=== PATIENT | female | born 1950 | race Caucasian/White ===

== ENCOUNTER 2024-07-06 11:55 | Inpatient (IN) | payer MEDICARE ==
[2024-07-06 12:46] LABS: Basophils # (A) 0.05 10*3/uL (0.00-0.10); Basophils % (A) 0.7 %; Eosinophils # (A) 0.03 10*3/uL (0.04-0.35); Eosinophils % (A) 0.4 %; HCT 45.4 % (37.2-46.3); HGB 14.8 g/dL (12.0-15.0); Lymphocytes # (A) 0.89 10*3/uL (0.90-5.00); Lymphocytes % (A) 11.8 %; MCH 28.2 pg (27.0-32.0); MCHC 32.6 g/dL (32.0-37.0); MCV 86.5 fL (80.0-97.0); Monocytes # (A) 0.54 10*3/uL (0.20-1.00); Monocytes % (A) 7.2 %; Neutrophils % (A) 79.5 %; Platelet Count 350 10*3/uL (140-440); RBC 5.25 10*6/uL (4.10-5.20); RDW 14.1 % (11.5-14.5); WBC 7.54 10*3/uL (4.50-10.00)
[2024-07-06 12:51] LABS: ALT 44 U/L (4-34); African American GFR (CKD) >90 (>60 ml/min/1.73 sqM); Albumin 4.8 g/dL (3.5-5.0); Alcohol <10 mg/dL; Anion Gap 13 mmol/L; Blood Urea Nitrogen 11 mg/dL (7-17); Calcium 10.1 mg/dL (8.4-10.2); Carbon Dioxide 23 mmol/L (22-30); Chloride 105 mmol/L (98-107); Glucose 108 mg/dL (74-99); Non-African American GFR(CKD) 89 (>60 ml/min/1.73 sqM); Sodium 141 mmol/L (137-145); Total Bilirubin 2.8 mg/dL (0.2-1.3); Total Protein 8.1 g/dL (6.3-8.2)
[2024-07-06 12:52] LABS: INR 1.1 (<1.2); Partial Thromboplastin Time 26.9 sec (22.0-30.0)
[2024-07-06 12:54] LABS: AST 105 U/L (14-36); Alkaline Phosphatase 83 U/L (38-126); Potassium 4.3 mmol/L (3.5-5.1)
[2024-07-06] MEDS: SODIUM CHLORIDE 0.9% 500 ML 500 ML IV ONE (13:27)
--- NOTE | 2024-07-06 14:15 | ED ---
Psych HPI - General Chief Complaint: Psychiatric Symptoms Stated Complaint: Petitioned-AMS Time Seen by Provider: 07/06/24 12:01 Source: patient, EMS, RN notes reviewed Mode of arrival: EMS Limitations: altered mental status - History of Present Illness Initial Comments: 74-year-old female presents emergency department with chief complaint of needing psychiatric evaluation. Patient brought here police EMS as patient reported called 911, ran into her apartment and locked herself in there. Patient is having very bizarre erratic behavior patient unable to provide any significant history or complaints as she is very altered. No obvious injury no reports from EMS or police of psychiatric history. - Related Data Home Medications Medication Instructions Recorded Confirmed Unable To Assess [Unable to Assess] 07/06/24 07/06/24 Allergies Allergy/AdvReac Type Severity Reaction Status Date / Time No Known Allergies Allergy Verified 07/06/24 12:07 Review of Systems ROS Statement: Those systems with pertinent positive or pertinent negative responses have been documented in the HPI. ROS Other: All systems not noted in ROS Statement are negative. Past Medical History Past Medical History: Unable to Obtain History of Any Multi-Drug Resistant Organisms: None Reported Past Surgical History: Unable to Obtain Past Psychological History: No Psychological Hx Reported Smoking Status: Never smoker Past Alcohol Use History: None Reported Past Drug Use History: None Reported General Exam Limitations: altered mental status General appearance: alert, in no apparent distress Head exam: Present: atraumatic, normocephalic, normal inspection Eye exam: Present: normal appearance, PERRL, EOMI. Absent: scleral icterus, conjunctival injection, periorbital swelling ENT exam: Present: normal exam, normal oropharynx, mucous membranes moist Neck exam: Present: normal inspection, full ROM. Absent: tenderness, meningismus, lymphadenopathy Respiratory exam: Present: normal lung sounds bilaterally. Absent: respiratory distress, wheezes, rales, rhonchi, stridor Cardiovascular Exam: Present: regular rate, normal rhythm, normal heart sounds. Absent: systolic murmur, diastolic murmur, rubs, gallop, clicks GI/Abdominal exam: Present: soft, normal bowel sounds. Absent: distended, tend erness, guarding, rebound, rigid Neurological exam: Present: alert. Absent: oriented X3 Skin exam: Present: warm, dry, intact, normal color. Absent: rash Course Vital Signs 04/07/06/24 07/06/24 12:00 14:47 21:08 Temperature 98.3 F Pulse Rate 101 H 87 73 Respiratory 16 18 16 Rate Blood Pressure 195/91 173/97 158/83 O2 Sat by Pulse 97 98 96 Oximetry 07/06/24 07/07/24 22:25 03:57 Temperature 97.6 F 97.6 F Pulse Rate 75 79 Respiratory 16 14 Rate Blood Pressure 164/83 166/74 O2 Sat by Pulse 96 95 Oximetry Medical Decision Making - Medical Decision Making Was pt. sent in by a medical professional or institution (, PA, CANDY SUPERVISOR, urgent care, hospital, or correction...) When possible be specific @ -No Did you speak to anyone other than the patient for history (EMS, parent, family, police, friend...)? What history was obtained from this source @ -Police, EMS providing prehospital complaint and symptoms Did you review nursing and triage notes (agree or disagree)? Why? @ -I reviewed and agree with nursing and triage notes Were old charts reviewed (outside hosp., previous admission, EMS record, old EKG, old radiological studies, urgent care reports/EKG's, correction records)? Report findings @ -No old charts were reviewed Differential Diagnosis (chest pain, altered mental status, abdominal pain women, abdominal pain men, vaginal bleeding, weakness, fever, dyspnea, syncope, head ache, dizziness, GI bleed, back pain, seizure, CVA, palpatations, mental health, musculoskeletal)? @ -Differential Mental Health Depression, anxiety, bipolar, psychosis, schizophrenia, borderline personality, situational depression, adjustment disorder, behavioral disorder, brain tumor, malingering, substance abuse, encephalopathy, medication reaction, dementia, hypothyroidism, degenerative neurologic disorder, lupus.... This is not meant to be all-inclusive list EKG interpreted by me (3pts min.). @ -As above X-rays interpreted by me (1pt min.). @ -Chest x-ray shows no acute cardiopulmonary process CT interpreted by me (1pt min.). @ -CT brain showing subacute infarct U/S interpreted by me (1pt. min.). @ -None done What testing was considered but not performed or refused? (CT, X-rays, U/S, labs)? Why? @ -None What meds were considered but not given or refused? Why? @ -None Did you discuss the management of the patient with other professionals (professionals i.e. , PA, CANDY SUPERVISOR, lab, RT, psych nurse, social secretary, dough scaler and mixer, teacher, juvenile correctional officer, ed case manager)? Give summary @[facility] for admission Was smoking cessation discussed for >3mins.? @ -No Was critical care preformed (if so, how long)? @ -No Were there social determinants of health that impacted care today? How? (Homelessness, low income, unemployed, alcoholism, drug addiction, transportation, low edu. Level, literacy, decrease access to med. care, long-term, rehab)? @ -No Was there de-escalation of care discussed even if they declined (Discuss DNR or withdrawal of care, Hospice)? DNR status @ -No What co-morbidities impacted this encounter? (DM, HTN, Smoking, COPD, CAD, Cancer, CVA, ARF, Chemo, Hep., AIDS, mental health diagnosis, sleep apnea, morbid obesity)? @ -None Was patient admitted / discharged? Hospital course, mention meds given and route, prescriptions, significant lab abnormalities, going to OR and other [facility] info. @ -Admitted patient presented acutely altered without history of psychiatric issues patient was petitioned by police for evaluation. Patient CT showed possible subacute infarct which may be causing patient's confusion, speech issues. Patient does have evidence of UTI was given antibiotics pending urine culture. Patient will have psychiatric evaluation, neurology evaluation. Patient was given aspirin. Undiagnosed new problem with uncertain prognosis? @ -No Drug Therapy requiring intensive monitoring for toxicity (Heparin, Nitro, Insulin, Cardizem)? @ -No Were any procedures done? @ -No Diagnosis/symptom? @ -CVA, altered mental status, psychosis Acute, or Chronic, or Acute on Chronic? @ -Acute Uncomplicated (without systemic symptoms) or Complicated (systemic symptoms)? @ -Complicated Side effects of treatment? @ -No Exacerbation, Progression, or Severe Exacerbation? @ -No Poses a threat to life or bodily function? How? (Chest pain, [place], [place], pneumonia, PE, COPD, DKA, ARF, appy, cholecystitis, CVA, Diverticulitis, Homicidal, Suicidal, threat to staff... and all critical care pts) @ -No - Lab Data Result diagrams: 07/06/24 12:34 07/06/24 12:34 Lab Results 07/06/24 07/06/24 07/06/24 Range/Units 12:34 12:34 12:34 WBC 7.54 (4.50-10.00) 10*3/uL RBC 5.25 H (4.10-5.20) 10*6/uL Hgb 14.8 (12.0-15.0) g/dL Hct 45.4 (37.2-46.3) % MCV 86.5 (80.0-97.0) fL MCH 28.2 (27.0-32.0) pg MCHC 32.6 (32.0-37.0) g/dL Plt Count 350 (140-440) 10*3/uL MPV 10.0 (9.5-12.2) fL Immature Gran % (Auto) 0.4 % Neutrophils % 79.5 % Lymphocytes % 11.8 % Monocytes % 7.2 % Eosinophils % 0.4 % Basophils % 0.7 % Immature Gran # 0.03 (0.00-0.04) 10*3/uL Neutrophils # 6.00 (1.80-7.70) 10*3/uL Lymphocytes # 0.89 L (0.90-5.00) 10*3/uL Monocytes # 0.54 (0.20-1.00) 10*3/uL Eosinophils # 0.03 L (0.04-0.35) 10*3/uL Basophils # 0.05 (0.00-0.10) 10*3/uL PT 12.0 (10.0-12.5) sec INR 1.1 (<1.2) APTT 26.9 (22.0-30.0) sec Sodium 141 (137-145) mmol/L Potassium 4.3 (3.5-5.1) mmol/L Chloride 105 (98-107) mmol/L Carbon Dioxide 23 (22-30) mmol/L Anion Gap 13 mmol/L BUN 11 (7-17) mg/dL Creatinine 0.60 (0.52-1.04) mg/dL Est GFR (CKD-EPI)AfAm >90 (>60 ml/min/1.73 sqM) Est GFR (CKD-EPI)NonAf 89 (>60 ml/min/1.73 sqM) Glucose 108 H (74-99) mg/dL Calcium 10.1 (8.4-10.2) mg/dL Total Bilirubin 2.8 H (0.2-1.3) mg/dL AST 105 H (14-36) U/L ALT 44 H (4-34) U/L Alkaline Phosphatase 83 (38-126) U/L Ammonia (<30) umol/L Troponin I (0.000-0.034) ng/mL Total Protein 8.1 (6.3-8.2) g/dL Albumin 4.8 (3.5-5.0) g/dL Serum Alcohol <10 mg/dL 07/06/24 07/06/24 Range/Units 12:34 12:34 WBC (4.50-10.00) 10*3/uL RBC (4.10-5.20) 10*6/uL Hgb (12.0-15.0) g/dL Hct (37.2-46.3) % MCV (80.0-97.0) fL MCH (27.0-32.0) pg MCHC (32.0-37.0) g/dL Plt Count (140-440) 10*3/uL MPV (9.5-12.2) fL Immature Gran % (Auto) % Neutrophils % % Lymphocytes % % Monocytes % % Eosinophils % % Basophils % % Immature Gran # (0.00-0.04) 10*3/uL Neutrophils # (1.80-7.70) 10*3/uL Lymphocytes # (0.90-5.00) 10*3/uL Monocytes # (0.20-1.00) 10*3/uL Eosinophils # (0.04-0.35) 10*3/uL Basophils # (0.00-0.10) 10*3/uL PT (10.0-12.5) sec INR (<1.2) APTT (22.0-30.0) sec Sodium (137-145) mmol/L Potassium (3.5-5.1) mmol/L Chloride (98-107) mmol/L Carbon Dioxide (22-30) mmol/L Anion Gap mmol/L BUN (7-17) mg/dL Creatinine (0.52-1.04) mg/dL Est GFR (CKD-EPI)AfAm (>60 ml/min/1.73 sqM) Est GFR (CKD-EPI)NonAf (>60 ml/min/1.73 sqM) Glucose (74-99) mg/dL Calcium (8.4-10.2) mg/dL Total Bilirubin (0.2-1.3) mg/dL AST (14-36) U/L ALT (4-34) U/L Alkaline Phosphatase (38-126) U/L Ammonia 14 (<30) umol/L Troponin I <0.012 (0.000-0.034) ng/mL Total Protein (6.3-8.2) g/dL Albumin (3.5-5.0) g/dL Serum Alcohol mg/dL - EKG Data EKG Comments: At 13: 23 sinus rhythm rate of 91 MA 183 QRS 87 QT/QTc 364/412 Disposition Clinical Impression: AMS (altered mental status), CVA (cerebral vascular accident) Disposition: ADMITTED IP TO THIS HOSP Condition: Fair Time of Disposition: 16:23
--- NOTE | 2024-07-06 14:47 | XR ---
EXAMINATION TYPE: XR chest 2V DATE OF EXAM: 07/06/2024 2:23 PM COMPARISON: None CLINICAL INDICATION: Female, 74 years old with history of altered mental status, confusion TECHNIQUE: AP and lateral views FINDINGS: Marked dextroconvex scoliosis. Heart appears borderline in size. Mild interstitial/vascular prominenc e likely technical due to AP technique and large body habitus. There is some patchy opacity at the po sterior base on the lateral view likely atelectasis. No pleural effusion. IMPRESSION: Limited by AP technique, large body habitus, and a marked dextroconvex scoliosis. The heart appears b orderline enlarged. Some patchy posterior basilar opacity probably represents atelectasis on the late ral view. Otherwise, no definite acute process. [facility], , 07/06/2024 2:45 PM
[2024-07-06] MEDS: LORazepam 2 MG/ML INJ IV STA ×2 (14:48→15:32)
--- NOTE | 2024-07-06 15:54 | CT ---
EXAMINATION TYPE: CT brain wo con DATE OF EXAM: 07/06/2024 COMPARISON: None CLINICAL INDICATION: Female, 74 years old with history of Altered mental status; PHH, AMS CT DLP: 2105.1 mGycm Automated exposure control for dose reduction was used. Findings: The ventricles, basal cisterns and sulci over the convexities are within normal limits and there is n o mass effect or shift of midline structures. There is a wedge-shaped area of decreased density involving the left parietal occipital area consiste nt with a subacute to chronic infarct. There is no acute intraparenchymal extra-axial hemorrhage. The posterior fossa including the brainstem, fourth ventricle and cerebellar pontine angles appear no rmal. Intraorbital contents appear normal and symmetric. Visualized paranasal sinuses and mastoid air cells are well aerated. The calvarium is intact. IMPRESSION: 1. No acute bleed or mass effect. 2. 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 [facility], , 07/06/2024 3:52 PM
[2024-07-06] MEDS ORDERED: ONDANSETRON 4 MG/2 ML VIAL IVP PRN (16:23)
[2024-07-06] MEDS ORDERED: ACETAMINOPHEN TAB 325 MG TAB PO PRN (16:23)
[2024-07-06] MEDS ORDERED: NALOXONE 0.4 MG/ML 1 ML VIAL IV PRN (16:23)
[2024-07-06] MEDS: ASPIRIN 325 MG TAB PO STA (16:46)
[2024-07-06 16:51] LABS: Appearance,Urine Turbid (Clear); Bilirubin,Urine Negative (Negative); Blood,Urine Small (Negative); Color,Urine Yellow; Glucose,Urine (UA) Negative (Negative); Hyaline Casts,Urine 6 /lpf (0-2); Ketones,Urine 2+ (Negative); Leukocyte Esterase,Urine Large (Negative); Mucus,Urine Many /hpf; Nitrite,Urine Negative (Negative); PH, Urine 5.5 (5.0-8.0); Protein,Urine 1+ (Negative); RBC,Urine 9 /hpf (0-5); Specific Gravity,Urine 1.026 (1.001-1.035); Squamous Epithelial Cell,Urine 2 /hpf (0-4); WBC,Urine >182 /hpf (0-5)
[2024-07-06 16:54] LABS: Amphetamine Screen,Urine Not Detected (NotDetected); Barbiturate Screen,Urine Not Detected (NotDetected); Benzodiazepines Screen,Urine Detected (NotDetected); Cocaine Screen,Urine Not Detected (NotDetected); Methadone Screen, Urine Not Detected (NotDetected); Opiate Screen,Urine Not Detected (NotDetected); Oxycodone Screen, Urine Not Detected (NotDetected); Phencyclidine Screen,Urine Not Detected (NotDetected); Tricyclic Antidepressant,Urine Not Detected (NotDetected); Urn Cannabinoid Scrn Not Detected (NotDetected)
[2024-07-06] MEDS: ASPIRIN 300 MG SUPP RECTAL STA (17:07)
[2024-07-06] MEDS: LORazepam 2 MG/ML INJ IV PRN (18:21)
--- NOTE | 2024-07-07 06:52 | P.HPIM ---
History of Present Illness This is a pleasant 74 years old female with limited information regarding her previous history or which medication she takes. She presents from home for altered mental status. She usually per staff she lives alone in her apartment and she has no next of kin, the neighbor called the EMS for her for medical reason unknown but patient barricaded herself in the EMS arrived. No further information is available at this time. Patient herself lying in the emergency room. She looks a pleasant relaxed but she is not talking appropriately, she is confused to time place and person, she mumbles she does not follow commands very well. However she says " everything is wonderful" patient review of system was negative with denying chest pain or dyspnea. GI/ symptom, denying headache dizziness weakness or numbness Patient is afebrile blood pressure stable. Has unremarkable CBC, BMP. Liver enzymes mildly elevated. INR is within the reference range troponin is negative Urine analysis is suspicious for UTI My virus Influenza A and type B, RSV, SARS (coronavirus) are undetected Urine drug screen is negative serum alcohol less than 10 Urine culture and blood culture requested and pending CT of the brain showing no acute process but there is left subacute to chronic infarction of the left occipital parietal region. While chest x-ray showing marked dextroconvex scoliosis and patchy posterior basilar opacity which favor atelectasis. EKG showing sinus rhythm at [address]-T changes Review of Systems Review of systems CONSTITUTIONAL: No fever, no malaise, no fatigue. HEENT: No recent visual problems or hearing problems. Denied any sore throat. CARDIOVASCULAR: No orthopnea, PND, no palpitations, no syncope. PULMONARY: No shortness of breath, no cough, no hemoptysis. GASTROINTESTINAL: No diarrhea, no nausea, no vomiting, no abdominal pain. Normoactive bowel sounds. NEUROLOGICAL: No headaches, no weakness, no numbness. HEMATOLOGICAL: Denies any bleeding or petechiae. GENITOURINARY: Denies any burning micturition, frequency, or urgency. MUSCULOSKELETAL/RHEUMATOLOGICAL: Denies any joint pain, swelling, or any muscle pain. ENDOCRINE: Denies any polyuria or polydipsia. Past Medical History Past Medical History: Unable to Obtain History of Any Multi-Drug Resistant Organisms: None Reported Past Surgical History: Unable to Obtain Past Psychological History: No Psychological Hx Reported Smoking Status: Never smoker Past Alcohol Use History: None Reported Past Drug Use History: None Reported Medications and Allergies Home Medications Medication Instructions Recorded Confirmed Type Unable To Assess [Unable to Assess] 07/06/24 07/06/24 History Allergies Allergy/AdvReac Type Severity Reaction Status Date / Time No Known Allergies Allergy Verified 07/06/24 12:07 Physical Exam Vitals: Vital Signs Temp Pulse Resp BP Pulse Ox 07/07/24 03:57 97.6 F 79 14 166/74 95 07/06/24 22:25 97.6 F 75 16 164/83 96 07/06/24 21:08 73 16 158/83 96 07/06/24 14:47 87 18 173/97 98 07/06/24 12:00 98.3 F 101 H 16 195/91 97 Intake and Output 07/06/24 07/06/24 07/07/24 14:59 22:59 06:59 Other: Weight 77.111 kg -GENERAL: The patient is alert and oriented x0, she does not follow command, she does not answer questions appropriately she mumbles, not in any acute distress. Well developed, well nourished. HEENT: Pupils are round and equally reacting to light. EOMI. No scleral icterus. No conjunctival pallor. Normocephalic, atraumatic. No pharyngeal erythema. No thyromegaly. CARDIOVASCULAR: S1 and S2 present. No murmurs, rubs, or gallops. PULMONARY: Chest is clear to auscultation, no wheezing , no crackles. ABDOMEN: Soft, nontender, nondistended, normoactive bowel sounds. No palpable organomegaly. MUSCULOSKELETAL: No joint swelling or deformity. EXTREMITIES: No cyanosis, clubbing, or pedal edema. -NEUROLOGICAL: Gross neurological examination did not reveal any focal deficits. Examination is limited by the patient noncooperation and confusion SKIN: No rashes. no petechiae. Results CBC & Chem 7: 07/06/24 12:34 07/06/24 12:34 Labs: Abnormal Lab Results - Last 24 Hours (Table) 07/06/24 07/06/24 07/06/24 Range/Units 12:34 12:34 16:38 RBC 5.25 H (4.10-5.20) 10*6/uL Lymphocytes # 0.89 L (0.90-5.00) 10*3/uL Eosinophils # 0.03 L (0.04-0.35) 10*3/uL Glucose 108 H (74-99) mg/dL Total Bilirubin 2.8 H (0.2-1.3) mg/dL AST 105 H (14-36) U/L ALT 44 H (4-34) U/L Urine Appearance Turbid H (Clear) Urine Protein 1+ H (Negative) Urine Ketones 2+ H (Negative) Urine Blood Small H (Negative) Ur Leukocyte Esterase Large H (Negative) Urine RBC 9 H (0-5) /hpf Urine WBC >182 H (0-5) /hpf Urine WBC Clumps Few H (None) /hpf Hyaline Casts 6 H (0-2) /lpf Urine Mucus Many H (None) /hpf U Benzodiazepines Scrn Detected H (NotDetected) Assessment and Plan Assessment: Metabolic encephalopathy with possible stroke. Acute urinary tract infection Subacute/chronic left occipital parietal infarction Hypertension with urgency on presentation Psychosis suspected on admission Plan: Continue with antibiotics ceftriaxone and follow-up urine and blood culture Neurology consult for her stroke. We will start the patient on aspirin 81 mg and Lipitor 20 mg and check lipid panel Will do further workup for altered mental status included ammonia level, TSH, hemoglobin A1c, B12 and folate, plus neurology consult Start metoprolol and monitor blood pressure Psychiatry consult for psychosis stock worker consult for placement Labs and medication were reviewed.. Continue same treatment. Continue with symptomatic treatment. Resume home medication. Monitor labs and vitals. DVT and GI prophylaxis. Further recommendations as per clinical course of the patient DVT prophylaxis: Subcutaneous heparin GI Prophylaxis: Pepcid PT/OT: Pending Prognosis is guarded
[2024-07-07] MEDS: METOPROLOL TARTRATE 25 MG TAB PO SCH (11:27)
[2024-07-07] MEDS: ASPIRIN 81 MG PO SCH (11:27)
[2024-07-07] MEDS ORDERED: QUEtiapine 25 MG TAB PO PRN (14:33)
[2024-07-07] MEDS ORDERED: OLANZapine 10 MG VIAL IM PRN (14:34)
--- NOTE | 2024-07-07 14:40 | P.CN ---
Psychiatric Consult - . Consult date: 07/07/24 Consult:: 07/07/24 13:39 IDENTIFYING DATA: This patient is a 74-year-old female, she is single, lives alone REASON FOR REFERRAL: Psychiatry was consulted for "psychosis" HISTORY OF PRESENT ILLNESS: The patient presented to the hospital initially on 07/06 to the ER via EMS. Apparently patient locked herself in her home apartment. Patient apparently was acting bizarre erratic had altered mental status. LFTs were elevated. Patient had a CT scan of her brain which showed a left subacute to chronic infarct in the occipital parietal region. Patient did have a [place], had a one-to-one sitter and also was awake and agreeable to speak to financial writer. She acknowledges financial writer had good eye contact. She knew her correct name, when asked about location and date she gave nonsensical answers. She only was answer able to answer a few questions. She denies any depression or anxiety. Her concentration appeared to be fair however her speech was a word salad. She was mumbling at times and confabulating.. At this time patient denies any suicidal or homical ideations, intent or plan. Patient denies any auditory, visual hallucinations and denies any paranoia or delusions. Patients admits to using no recreational drugs Due to patient's poor mental status and aphasia, unable to answer further questions about her past psychiatric and social histories. PAST PSYCHIATRIC HISTORY: Unable to obtain. PAST MEDICAL HISTORY: As per ER note ALLERGIES: as per EMR. CHEMICAL DEPENDENCY HISTORY: as per HPI. FAMILY PSYCHIATRIC/SUBSTANCE USE HISTORY: Unable to obtain SOCIAL HISTORY: Patient apparently lives alone in an apartment. She is single. Unable to obtain further information MENTAL STATUS EXAM: General Appearance: Patient appears to be laying in bed, stated age is alert, pleasant, attempts to be cooperative. Patient appears to have fair hygiene and grooming wearing hospital gown with fair eye contact. Behavior: Patient is calmly lying in bed without any agitated behavior. Attempts to cooperate. Speech: Word salad, mumbling and confabulating Mood/Affect: Unable to obtain Suicidality/Homicidality: Patient denies having any suicidal or homicidal ideation intent or plan. Perceptions: Patient denies any visual hallucinations and denies any auditory hallucinations Though content/process: Disorganized thoughts, illogical, word salad Memory and concentration: AOX1, to her name only. Cannot spell "WORLD" backwards Judgment and insight: Poor/limited IMPRESSIONS: Delirium, unknown etiology history of CVA PLAN: -At this time patient DOES NOT meet criteria for inpatient psychiatric admission. -Patient DOES NOT have decision making capacity at this time and is unable to reason through and communicate/appreciate the risks, benefits and alternatives to treatment. -Delirium precautions recommended with patient including - avoiding use of narcotics and MANUFACTURING PLANT MANAGER sedatives, limit anticholinergic medications when possible, frequent re-orientation, minimize use of restraints, open window shades during the day and close them at night -Would recommend the following medication changes/additions: Please avoid benzodiazepines and Ativan as this will increase patient's confusion and delirium. Added Seroquel scheduled 25 mg nightly and 25 mg twice daily as needed for agitation/psychosis. Could consider adding on melatonin if patient continues to have issues with sleep. -Communicated plan to patient's nurse -Psychiatry will sign off at this time -patient most likely will need placement or rehab -Please contact with any questions. 07/07/24 14:34
[2024-07-07 15:47] LABS: Chol/HDL Ratio 4.57 Ratio
[2024-07-07] MEDS: cefTRIAXone 2 GM in DEXTROSE 5% IN WATER 50 ML IVPB SCH (20:12)
[2024-07-07] MEDS: ATORVASTATIN 20 MG TAB PO SCH (20:13)
[2024-07-07] MEDS: LOSARTAN 25 MG TAB PO STA (20:13)
[2024-07-07] MEDS: QUEtiapine 25 MG TAB PO SCH (20:13)
[2024-07-07] MEDS: ASPIRIN 325 MG TAB PO SCH (20:23)
[2024-07-07] MEDS: hydrALAZINE HCL 20 MG/ML 1 ML VIAL IVP STA (21:20)
--- NOTE | 2024-07-08 00:13 | P.CNNES ---
History of Present Illness Consult date: 07/07/24 Requesting physician: Marshall Pfeiffer Reason for Consult: Subacute CVA altered mental status History of Present Illness: Patient is a 74-year-old female came to the hospital by ambulance yesterday at 11:55 AM for altered mental status. Patient is having gibberish speech, talking completely nonsensical speech, therefore not able to provide any history. EMS flowsheet not available in the chart. As per ED records, patient was brought to the hospital by ambulance for needing psychiatric evaluation. Patient apparently reported called 911, ran into her apartment and locked herself in there. Patient is having bizarre erratic behavior, patient unable to provide any significant history or complaints and was very altered. No obvious injuries. Patient denies headache, or dizziness. On asking about vision, patient said "everything as it should be". Vital signs on arrival blood pressure 195/91, pulse rate 101, temperature 98.3. Blood test shows normal CBC, PT PTT, normal basic metabolic panel. AST is 105, ALT 44, troponin is normal, ammonia 14 which is normal. TSH normal. UA shows large amount of leukocyte Estrace, more than 182 WBCs and few WBC clumps. Urine drug screen positive for benzodiazepine, blood alcohol level negative. EKG showed sinus rhythm. CT head showed no acute bleed or mass effect. 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 I personally reviewed CT head and agree with the findings. No previous CT scans available for comparison. There is no contact information of family members to obtain collateral history at this point. Review of Systems Some review of systems as per HPI. ROS unobtainable: due to mental status Past Medical History Past Medical History: Unable to Obtain History of Any Multi-Drug Resistant Organisms: None Reported Past Surgical History: Unable to Obtain Past Psychological History: No Psychological Hx Reported Smoking Status: Never smoker Past Alcohol Use History: None Reported Past Drug Use History: None Reported Medications and Allergies Home Medications Medication Instructions Recorded Confirmed Type Unable To Assess [Unable to Assess] 07/06/24 07/06/24 History Allergies Allergy/AdvReac Type Severity Reaction Status Date / Time No Known Allergies Allergy Verified 07/06/24 12:07 Physical Examination - Vital Signs Vital Signs: Vital Signs Temp Pulse Pulse Resp BP BP Pulse Ox 07/07/24 11:22 83 16 177/74 98 07/07/24 08:15 97.6 F 87 16 166/89 98 07/07/24 03:57 97.6 F 79 14 166/74 95 07/06/24 22:25 97.6 F 75 16 164/83 96 07/06/24 21:08 73 16 158/83 96 07/06/24 14:47 87 18 173/97 98 Intake and Output 07/06/24 07/07/24 07/07/24 22:59 06:59 14:59 Other: # Voids 1 I examined patient twice. The first time in the morning, when patient was talking completely gibberish, nonsensical, with no intelligible speech. I then reexamined the patient in the evening and patient was somewhat better, able to speak some sentences, following some directions. She does have a very unusual affect, smiling, very cheerful, with complete lack of concern about her condition. Some concern about psychiatric basis. On examination, patient is an elderly female, reclining comfortably in the bed. Patient is alert awake in no acute distress. Patient has severe fluent aphasia, with very minimal comprehension. Patient cannot name, cannot repeat, cannot read. She was able to point to the window (to her left side), but could not point to the door (on her right side), or the ceiling. Patient says some phrases clearly like "that looks good". Patient has completely garbled gibberish speech, unintelligible. Attention, concentration appears intact and fund of knowledge is severely limited because of aphasia. On asking certain tasks, patient says "good morning", and will repeat "good morning". Once she said "hello" for no obvious reason. Upon showing the pen, patient says "Bennett slovenian", then said "AEIOU". Patient is somewhat odd affect. On cranial nerve examination, pupils are equal, round and reacting to light, visual patel could not be tested because of impaired comprehension. Extraocular muscles are intact with no nystagmus. Face is symmetric, tongue protrudes to the midline. Patient would not open her mouth, and when I said to say "Aaaa", patient states "A E I O U". Her hearing appears normal and shoulder shrug normal, facial sensation normal. On muscle strength testing, there is no pronator drift and the strength is very difficult to assess, as patient would not cooperate. She appears to have good biceps, but did not understand to check for triceps. Patient apparently was able to cooperate with strength testing of the lower limbs and appears completely normal distally and proximally. Deep tendon reflexes are symmetric trace in the upper limbs, 1 in the lower limbs and plantars flat. Sensory to touch is difficult to assess. On checking sensations, patient said "not so much" Cerebellar function could not be assessed. Patient would not cooperate. She would start playing with the hands. Tone and bulk of muscles normal. Gait deferred.. On general examination, there is no carotid bruit or murmur, S1-S2 audible. Chest is clear on consultation. Abdomen is soft nontender. No organomegaly, bowel sounds present. Peripheral pulses are present. No peripheral edema. Results - Laboratory Findings CBC and BMP: 07/06/24 12:34 07/06/24 12:34 Abnormal Lab Findings: Abnormal Labs 07/06/24 07/06/24 07/06/24 12:34 12:34 16:38 RBC 5.25 H Lymphocytes # 0.89 L Eosinophils # 0.03 L Glucose 108 H Total Bilirubin 2.8 H AST 105 H ALT 44 H Urine Appearance Turbid H Urine Protein 1+ H Urine Ketones 2+ H Urine Blood Small H Ur Leukocyte Esterase Large H Urine RBC 9 H Urine WBC >182 H Urine WBC Clumps Few H Hyaline Casts 6 H Urine Mucus Many H U Benzodiazepines Scrn Detected H Assessment and Plan Assessment: * Altered mental status, with complete fluent aphasia with gibberish speech. Rest of the examination is nonfocal. Rule out CVA versus delirium/psychosis. * Abnormal CT head with evidence of late subacute to chronic infarct involving the left occipital parietal region. * Rule out delirium. * Hypertension Plan: * Patient CT head showed subacute to chronic CVA involving the left occipital parietal region. We will perform MRI of the brain to evaluate for the chronicity of the CVA. * Start aspirin 325 mg daily. Patient apparently not on any antiplatelet medication at home as per records. * Fasting lipid panel with cholesterol 213, LDL 146, HDL 46 and triglycerides 102. Patient started on Lipitor 20 mg daily. * Hemoglobin A1c 6.0. * B12 1715, TSH 1.040. * CTA of head and neck rule out stenosis. * 2D echo with bubble study, rule out PFO * EEG rule out epileptiform activity. * Psychiatry has seen the patient, suspecting delirium, started on Seroquel 25 mg at bedtime. * Neurology will follow. Thank you for the consult. Time with Patient: Greater than 30
[2024-07-08 07:10] LABS: Basophils # (A) 0.04 10*3/uL (0.00-0.10); Basophils % (A) 0.5 %; Eosinophils # (A) 0.13 10*3/uL (0.04-0.35); Eosinophils % (A) 1.8 %; HCT 47.7 % (37.2-46.3); HGB 15.3 g/dL (12.0-15.0); Lymphocytes # (A) 1.23 10*3/uL (0.90-5.00); Lymphocytes % (A) 16.6 %; MCH 27.9 pg (27.0-32.0); MCHC 32.1 g/dL (32.0-37.0); Mean Platelet Volume 10.7 fL (9.5-12.2); Monocytes # (A) 0.66 10*3/uL (0.20-1.00); Monocytes % (A) 8.9 %; Neutrophils # (A) 5.33 10*3/uL (1.80-7.70); Neutrophils % (A) 71.9 %; Platelet Count 346 10*3/uL (140-440); RBC 5.48 10*6/uL (4.10-5.20); WBC 7.41 10*3/uL (4.50-10.00)
[2024-07-08 07:20] LABS: African American GFR (CKD) >90 (>60 ml/min/1.73 sqM); Anion Gap 11 mmol/L; Blood Urea Nitrogen 9 mg/dL (7-17); Calcium 9.7 mg/dL (8.4-10.2); Carbon Dioxide 25 mmol/L (22-30); Chloride 104 mmol/L (98-107); Glucose 88 mg/dL (74-99); Non-African American GFR(CKD) 88 (>60 ml/min/1.73 sqM); Potassium 3.7 mmol/L (3.5-5.1); Sodium 140 mmol/L (137-145)
--- NOTE | 2024-07-08 12:13 | US ---
EXAMINATION TYPE: US carotid duplex BILAT DATE OF EXAM: 07/08/2024 COMPARISON: NONE CLINICAL INDICATION: Female, 74 years old with history of cva?; recent stroke Dizziness. TECHNIQUE: Grayscale, color Doppler and spectral Doppler evaluation of the bilateral carotid systems and vertebral arteries. Indirect Doppler criteria was utilized. FINDINGS: EXAM MEASUREMENTS: RIGHT: Peak Systolic Velocity (PSV) cm/sec ----- Right CCA: 83.2 ----- Right ICA: 90.8 ----- Right ECA: 110 ICA/CCA ratio: 1.1 RIGHT: End Diastole cm/sec ----- Right CCA: 15.6 ----- Right ICA: 16.8 ----- Right ECA: 14.3 LEFT: Peak Systolic Velocity (PSV) cm/sec ----- Left CCA: 110 ----- Left ICA: 98.7 ----- Left ECA: 110 ICA/CCA ratio: 0.9 LEFT: End Diastole cm/sec ----- Left CCA: 14.3 ----- Left ICA: 12.3 ----- Left ECA: 14.3 VERTEBRALS (direction of flow): Right Vertebral: Antegrade Left Vertebral: Antegrade Rhythm: Normal SKEIN STRAIGHTENER NOTES: very limited scan due to pt being confused & unable to sit still, kept moving head & talking during exam Minimal plaque seen bilaterally, no elevated velocities or significant stenosis seen bilaterally Limited exam due to vessel tortuosity Color Doppler imaging shows patency with blood flow throughout the carotid artery. Spectral waveforms are within normal limits. IMPRESSION: Limited exam as above. No findings of a hemodynamically significant internal carotid artery stenosis on either side. Criteria for Assigning % of Stenosis / Diameter reduction (Estimation based on the indirect measurements of the internal carotid artery velocities (ICA PSV). 1. Normal (no stenosis)=ICA PSV < 180 cm/s: ratio < 2.0: ICA EDV<40 cm/s. 2. Less than 50% stenosis=ICA PSV < 180 cm/s: ratio < 2.0: ICA EDV<40 cm/s. 3. 50 to 69% stenosis=ICA PSV of 180 to 230 cm/s: ration 2.0 ? 4.0: ICA EDV 40-100 cm/s. PSV 125-180 cm/sec and ICA/CCA PSV Ratio ? 2.0 is also consistent with 50-69% stenosis 4. Greater than 70% stenosis to near occlusion= ICA PSV > 230 cm/s: ratio > 4.0: ICA EDV > 100 cm/s. 5. Near occlusion= ICA PSV velocities may be low or undetectable: variable ratio and ICA EDV. 6. Total occlusion=unable to detect flow. [facility], Workstation: [id number], 07/08/2024 12:10 PM
[2024-07-08] MEDS: amLODIPine 5 MG TAB PO SCH (13:44)
[2024-07-08] MEDS: hydrALAZINE HCL 20 MG/ML 1 ML VIAL IVP PRN (14:37)
--- NOTE | 2024-07-08 14:50 | P.PN ---
Subjective This is a pleasant 74 years old female with limited information regarding her previous history or which medication she takes. She presents from home for altered mental status. She usually per staff she lives alone in her apartment and she has no next of kin, the neighbor called the EMS for her for medical reason unknown but patient barricaded herself in the EMS arrived. No further information is available at this time. Patient herself lying in the emergency room. She looks a pleasant relaxed but she is not talking appropriately, she is confused to time place and person, she mumbles she does not follow commands very well. However she says " everything is wonderful" patient review of system was negative with denying chest pain or dyspnea. GI/ symptom, denying headache dizziness weakness or numbness Patient is afebrile blood pressure stable. Has unremarkable CBC, BMP. Liver enzymes mildly elevated. INR is within the reference range troponin is negative Urine analysis is suspicious for UTI My virus Influenza A and type B, RSV, SARS (coronavirus) are undetected Urine drug screen is negative serum alcohol less than 10 Urine culture and blood culture requested and pending CT of the brain showing no acute process but there is left subacute to chronic infarction of the left occipital parietal region. While chest x-ray showing marked dextroconvex scoliosis and patchy posterior basilar opacity which favor atelectasis. EKG showing sinus rhythm at [address]-T changes 07/08 Patient still confused, She denies burning She refused medication like blood pressure medication, blood pressure still elevated started on clonidine 0.1 mg Evaluated by contract negotiator and found she does not have capacity make medical deci aaliyah, I agree with these findings based upon my evaluation Patient was started on Seroquel scheduled and as needed doses per psychiatrist Neurologist also evaluated the patient, EEG, MRI of the brain and echo with bubble study is requested Patient currently remains on ceftriaxone Aspirin 325 mg ordered Active Medications Generic Name Dose Route Start Last Admin Trade Name Freq PRN Reason Stop Dose Admin Acetaminophen 650 mg 07/06/24 16:23 Acetaminophen Tab 325 Mg Tab PO Q6HR PRN Mild Pain or Fever > 100.5 Amlodipine Besylate 5 mg 07/08/24 13:30 07/08/24 14:14 Amlodipine 5 Mg Tab PO Not Given DAILY [facility] Aspirin 325 mg 07/07/24 19:15 07/08/24 10:54 Aspirin 325 Mg Tab PO Not Given DAILY [facility] Atorvastatin Calcium 20 mg 07/07/24 21:00 07/07/24 20:55 Atorvastatin 20 Mg Tab PO Not Given HS [facility] Clonidine HCl 1 patch 07/08/24 15:00 Clonidine 0.1 Mg/24hr Patch TRANSDERM Q7D [facility] Hydralazine HCl 10 mg 07/08/24 13:27 07/08/24 14:37 Hydralazine Hcl 20 Mg/Ml 1 Ml Vial IVP 10 mg Q6HR PRN Administration Blood Pressure - High Ceftriaxone Sodium 2 gm/ 50 mls @ 100 mls/hr 07/07/24 21:00 07/07/24 20:12 Dextrose/Water IVPB 100 mls/hr HS IRMA Administration Protocol Naloxone HCl 0.2 mg 07/06/24 16:23 Naloxone 0.4 Mg/Ml 1 Ml Vial IV Q2M PRN Opioid Reversal Olanzapine 2.5 mg 07/07/24 14:34 Olanzapine 10 Mg Vial IM TID PRN Severe Agitation Ondansetron HCl 4 mg 07/06/24 16:23 Ondansetron 4 Mg/2 Ml Vial IVP Q8HR PRN Nausea And Vomiting Quetiapine Fumarate 25 mg 07/07/24 21:00 07/07/24 20:56 Quetiapine 25 Mg Tab PO Not Given HS [facility] Quetiapine Fumarate 25 mg 07/07/24 14:33 Quetiapine 25 Mg Tab PO BID PRN agitation/psychosis Objective - Vital Signs Vital signs: Vital Signs Temp 97.5 F L 07/08/24 03:09 Pulse 97 07/08/24 12:08 Resp 16 07/08/24 12:08 BP 185/96 07/08/24 12:08 Pulse Ox 96 07/08/24 12:08 FiO2 Intake & Output 07/07/24 07/08/24 07/08/24 18:59 06:59 18:59 Intake Total 10 0 Balance 10 0 Weight 73.9 kg Intake: IV 10 Invasive Line 2 10 Oral 0 Other: Voiding Method Toilet Toilet # Voids 1 1 0 # Bowel Movements 0 - Exam -GENERAL: The patient is alert and oriented x0, she does not follow command, she does not answer questions appropriately she mumbles, not in any acute distress. Well developed, well nourished. HEENT: Pupils are round and equally reacting to light. EOMI. No scleral icterus. No conjunctival pallor. Normocephalic, atraumatic. No pharyngeal erythema. No thyromegaly. CARDIOVASCULAR: S1 and S2 present. No murmurs, rubs, or gallops. PULMONARY: Chest is clear to auscultation, no wheezing , no crackles. ABDOMEN: Soft, nontender, nondistended, normoactive bowel sounds. No palpable organomegaly. MUSCULOSKELETAL: No joint swelling or deformity. EXTREMITIES: No cyanosis, clubbing, or pedal edema. -NEUROLOGICAL: Gross neurological examination did not reveal any focal deficits. Examination is limited by the patient noncooperation and confusion SKIN: No rashes. no petechiae. - Labs CBC & Chem 7: 07/08/24 06:24 07/08/24 06:24 Labs: Abnormal Lab Results - Last 24 Hours (Table) 07/07/24 07/07/24 07/08/24 Range/Units 07:37 07:37 06:24 RBC 5.48 H (4.10-5.20) 10*6/uL Hgb 15.3 H (12.0-15.0) g/dL Hct 47.7 H (37.2-46.3) % Cholesterol 213.00 H (0.00-200.00) mg/dL LDL Cholesterol, Calc 146.0 H (0.0-131.0) mg/dL Vitamin B12 1715.0 H (200.0-944.0) pg/mL Folate 35.60 H (4.40-31.00) ng/mL Microbiology - Last 24 Hours (Table) 07/06/24 16:38 Urine Culture - Final Urine,Voided Assessment and Plan Assessment: Metabolic encephalopathy with possible stroke. Acute urinary tract infection Subacute/chronic left occipital parietal infarction Hypertension with urgency on presentation Psychosis suspected on admission Plan: Continue with antibiotics ceftriaxone and follow-up urine and blood culture Neurology consult for her stroke. We will start the patient on aspirin 81 mg and Lipitor 20 mg and check lipid panel Will do further workup for altered mental status included ammonia level, TSH, hemoglobin A1c, B12 and folate, plus neurology consult Start metoprolol and monitor blood pressure Psychiatry consult for psychosis welfare worker consult for placement Labs and medication were reviewed.. Continue same treatment. Continue with symptomatic treatment. Resume home medication. Monitor labs and vitals. DVT and GI prophylaxis. Further recommendations as per clinical course of the patient DVT prophylaxis: Subcutaneous heparin GI Prophylaxis: Pepcid PT/OT: Pending Prognosis is guarded
[2024-07-08] MEDS: cloNIDine 0.1 MG/24HR PATCH TRANSDERM SCH (16:19)
--- NOTE | 2024-07-09 09:44 | P.PN ---
Subjective Progress Note Date: 07/08/24 Patient was seen for a follow-up. Patient continues to be somewhat aphasic/possible psychosis. She talks gibberish, sometimes speaks very clearly, like "can I have that please". When I showed her a pen, patient says "good morning". She said "I do not know what you mean". Her speech and examination are somewhat fluctuating. Objective - Vital Signs Vital signs: Vital Signs Temp 97.5 F L 07/08/24 03:09 Pulse 91 07/08/24 03:09 Resp 16 07/08/24 03:09 BP 150/84 07/08/24 03:09 Pulse Ox 98 07/07/24 11:22 FiO2 Intake & Output 07/07/24 07/08/24 07/08/24 18:59 06:59 18:59 Intake Total 10 Balance 10 Weight 73.9 kg Intake: IV 10 Invasive Line 2 10 Other: Voiding Method Toilet Toilet # Voids 1 1 - Exam Examination as above. Rest of the examination unchanged. - Labs CBC & Chem 7: 07/08/24 06:24 07/08/24 06:24 Labs: Abnormal Lab Results - Last 24 Hours (Table) 07/07/24 07/08/24 Range/Units 07:37 06:24 RBC 5.48 H (4.10-5.20) 10*6/uL Hgb 15.3 H (12.0-15.0) g/dL Hct 47.7 H (37.2-46.3) % Cholesterol 213.00 H (0.00-200.00) mg/dL LDL Cholesterol, Calc 146.0 H (0.0-131.0) mg/dL Vitamin B12 1715.0 H (200.0-944.0) pg/mL Microbiology - Last 24 Hours (Table) 07/06/24 16:38 Urine Culture - Final Urine,Voided Assessment and Plan Assessment: * Altered mental status, with complete fluent aphasia with gibberish speech. Rest of the examination is nonfocal. Rule out CVA versus delirium/psychosis. * Abnormal CT head with evidence of late subacute to chronic infarct involving the left occipital parietal region. * Rule out delirium. * Hypertension Plan: * Patient CT head showed subacute to chronic CVA involving the left occipital parietal region. * Patient cannot have MRI of the brain because of no family members available to give the consent and patient cannot consent because of mental confusion and aphasia. * Start aspirin 325 mg daily. Patient apparently not on any antiplatelet medi cation at home as per records. * Fasting lipid panel with cholesterol 213, LDL 146, HDL 46 and triglycerides 102. Patient started on Lipitor 20 mg daily. * Hemoglobin A1c 6.0. * B12 1715, TSH 1.040. * CTA could not be done, as patient not able to give the consent for the contrast. Therefore carotid Doppler was performed, which revealed limited examination. No findings of a hemodynamically significant internal carotid artery stenosis on either side. Antegrade flow in both vertebral arteries. * 2D echo with bubble study, rule out PFO, still pending * EEG completed, we will review the results. * Psychiatry has seen the patient, suspecting delirium, started on Seroquel 25 mg at bedtime.
--- NOTE | 2024-07-09 13:46 | P.PN ---
Progress Note - Text Progress Note Date: 07/09/24 Interval history: Patient was seen today for psychiatric follow-up at the bedside. Patient does have a history of CVA, has been delirious/confused. Patient was prescribed Seroquel 25 mg nightly however has been refusing medications. Currently awaiting EEG, MRI not able to do due to patient not consenting to the imaging. Patient's nurse states that patient remains confused at times, not taking medications for the most part. Patient was seen laying in bed today agreeable to speak to magazine writer. She continues to have aphasia, word salad, some understanding and follows very minimal commands. Her attention span appears to be fair. She does have difficulty with language and her thought process. Denies any depression or anxiety. Denies any auditory or visual hallucinations denies any suicidal homicidal ideations intent or plan. Patient is fairly uncooperative with any commands or mental status testing. Very poor insight and judgment. MENTAL STATUS EXAM: General Appearance: Patient appears to be laying in bed, stated age is alert, pleasant, attempts to be cooperative however not following commands or directions. Patient appears to have fair hygiene and grooming wearing hospital gown with fair eye contact. Behavior: Patient is calmly lying in bed without any agitated behavior. Attempts to cooperate. Unable to follow most commands Speech: Word salad, mumbling and confabulating Mood/Affect: Claims that her mood is fair, affect is constricted Suicidality/Homicidality: Patient denies having any suicidal or homicidal ideation intent or plan. Perceptions: Patient denies any visual hallucinations and denies any auditory hallucinations Though content/process: Disorganized thoughts, illogical, word salad Memory and concentration: AOX1, to her name only. Cannot spell "WORLD" backwards, concentration poor Judgment and insight: Poor/limited IMPRESSIONS: Delirium, unknown etiology history of CVA PLAN: -At this time patient DOES NOT meet criteria for inpatient psychiatric admission. -Patient DOES NOT have decision making capacity at this time and is unable to reason through and communicate/appreciate the risks, benefits and alternatives to treatment. -Delirium precautions recommended with patient including - avoiding use of narcotics and BED OPERATOR sedatives, limit anticholinergic medications when possible, frequent re-orientation, minimize use of restraints, open window shades during the day and close them at night -Would recommend the following medication changes/additions: Please avoid benzodiazepines and Ativan as this will increase patient's confusion and delirium. Seroquel scheduled 25 mg nightly and 25 mg twice daily as needed for agitation/psychosis. Could consider adding on melatonin if patient continues to have issues with sleep. -Communicated plan to patient's nurse -Psychiatry will continue following along if needed. -patient most likely will need placement or rehab. would also recommend filing for gaurdianship to help with placement and decisions -Please contact with any questions.
--- NOTE | 2024-07-09 16:06 | CA ---
Transthoracic Echo Report Name: Sharon Paul Age: 74 Gender: F : 1950 Exam Date: 07/09/2024 08:12 Exam Location: [place] [facility] Ht (in): 66 Wt (lb): 162 Ordering Physician: Ken Dang MD Attending/Referring Phys: [id number], Laurence Java Lead Nora Hernadez, [facility] Procedure CPT: Indications: 2D echo with bubble study, rule out PFO Cardiac Hx: Bubbles study attempted Technical Quality: Fair Contrast 1: Agitated Saline Total Dose (mL): 2 Contrast 2: Total Dose (mL): MEASUREMENTS (Male / Female) Normal Values 2D ECHO LV Diastolic Diameter PLAX 4.1 cm 4.2 - 5.9 / 3.9 - 5.3 cm LV Systolic Diameter PLAX 2.7 cm IVS Diastolic Thickness 0.9 cm 0.6 - 1.0 / 0.6 - 0.9 cm LVPW Diastolic Thickness 1.0 cm 0.6 - 1.0 / 0.6 - 0.9 cm LV Relative Wall Thickness 0.5 RV Internal Dim ED PLAX 3.1 cm LA Systolic Diameter LX 2.8 cm 3.0 - 4.0 / 2.7 - 3.8 cm M-MODE Aortic Root Diameter MM 3.2 cm AV Cusp Separation MM 1.9 cm DOPPLER MV Area PHT 10.3 cm??? Mitral E Point Velocity 72.4 cm/s Mitral A Point Velocity 111.7 cm/s Mitral E to A Ratio 0.6 MV Deceleration Time 73.9 ms FINDINGS Left Ventricle Left ventricular ejection fraction is estimated at 55-60 %. Left ventricular cavity size normal. Mildly increased posterior wall thickness. Normal left ventricular wall motion. Right Ventricle Normal right ventricular size. Unable to estimate the right ventricular systolic pressure. Right Atrium Normal right atrial size. No right atrial thrombus or mass seen. Left Atrium Normal left atrial size. No left atrial thrombus or mass present. Mitral Valve Structurally normal mitral valve. Mitral valve thickened. Mitral annular calcification. Aortic Valve Aortic valve sclerosis. No aortic valve stenosis or regurgitation. Tricuspid Valve Structurally normal tricuspid valve. No tricuspid stenosis, regurgitation or prolapse. Pulmonic Valve Structurally normal pulmonic valve. No pulmonic regurgitation. Pericardium No pericardial effusion. Aorta Normal size aortic root and proximal ascending aorta. CONCLUSIONS Left ventricular ejection fraction 55 to 60% Mildly increased left ventricular wall thickness Mitral annular calcification No pericardial effusion Previewed by: Dr. Billy Duron DO (Electronically Signed) Final Date: 09 Jul 2024 16:05
--- NOTE | 2024-07-09 22:32 | EEG ---
ELECTROENCEPHALOGRAM REPORT PREAMBLE: This is a 74-year-old female with altered mental status. CURRENT MEDICATIONS: 1. Aspirin. 2. Lipitor. 3. Lopressor. 4. Zyprexa. 5. Seroquel. 6. Zofran. EEG FINDINGS: This is a 21-channel digital EEG recorded with a video component, utilizing 10/20 international system with referential and bipolar montage. The study is a quite limited because the patient is continuously talking and very restless, moving her head very frequently during the study. Overall, the background consists of well developed, well regulated moderate voltage activity around 8 to 9 Hz alpha. Background is posterior dominant and it is reactive to eye opening and closing. There is probable frontal rhythmic and arrhythmic delta activity seen during the study. Lot of movement and myogenic artifacts were seen as the patient was constantly talking during the study. Different stages of sleep were not seen. No definitive, focal, or generalized epileptiform activity was seen. IMPRESSION: This is a technically limited EEG because of the patient's constant movement and myogenic artifact during most of the study. Overall, there is presence of rhythmic and arrhythmic frontal delta activity seen, which may suggest underlying focal cortical neuronal dysfunction. No definitive epileptiform activity was seen. If your suspicion for seizures is high, suggest prolonged, sleep-deprived EEG. MMODL / IJN: [id number] /
--- NOTE | 2024-07-09 22:52 | P.PN ---
Subjective This is a pleasant 74 years old female with limited information regarding her previous history or which medication she takes. She presents from home for altered mental status. She usually per staff she lives alone in her apartment and she has no next of kin, the neighbor called the EMS for her for medical reason unknown but patient barricaded herself in the EMS arrived. No further information is available at this time. Patient herself lying in the emergency room. She looks a pleasant relaxed but she is not talking appropriately, she is confused to time place and person, she mumbles she does not follow commands very well. However she says " everything is wonderful" patient review of system was negative with denying chest pain or dyspnea. GI/ symptom, denying headache dizziness weakness or numbness Patient is afebrile blood pressure stable. Has unremarkable CBC, BMP. Liver enzymes mildly elevated. INR is within the reference range troponin is negative Urine analysis is suspicious for UTI My virus Influenza A and type B, RSV, SARS (coronavirus) are undetected Urine drug screen is negative serum alcohol less than 10 Urine culture and blood culture requested and pending CT of the brain showing no acute process but there is left subacute to chronic infarction of the left occipital parietal region. While chest x-ray showing marked dextroconvex scoliosis and patchy posterior basilar opacity which favor atelectasis. EKG showing sinus rhythm at [address]-T changes 07/08 Patient still confused, She denies burning She refused medication like blood pressure medication, blood pressure still elevated started on clonidine 0.1 mg Evaluated by interventional radiologist and found she does not have capacity make medical deci aaliyah, I agree with these findings based upon my evaluation Patient was started on Seroquel scheduled and as needed doses per psychiatrist Neurologist also evaluated the patient, EEG, MRI of the brain and echo with bubble study is requested Patient currently remains on ceftriaxone Aspirin 325 mg ordered 07/09 Patient is pleasantly confused She states everything is all right Echocardiogram done today She denies any other new complaint Objective - Vital Signs Vital signs: Vital Signs Temp 97.4 F L 07/09/24 09:16 Pulse 99 07/09/24 11:25 Resp 14 07/09/24 11:25 BP 179/91 07/09/24 11:25 Pulse Ox 98 07/09/24 11:25 FiO2 Intake & Output 07/08/24 07/09/24 07/09/24 18:59 06:59 18:59 Intake Total 100 0 50 Balance 100 0 50 Weight 70.5 kg Intake: Oral 100 0 50 Other: Voiding Method Toilet Toilet Toilet # Voids 0 # Bowel Movements 0 - Exam -GENERAL: The patient is alert and oriented x0, she does not follow command, she does not answer questions appropriately she mumbles, not in any acute distress. Well developed, well nourished. HEENT: Pupils are round and equally reacting to light. EOMI. No scleral icterus. No conjunctival pallor. Normocephalic, atraumatic. No pharyngeal erythema. No thyromegaly. CARDIOVASCULAR: S1 and S2 present. No murmurs, rubs, or gallops. PULMONARY: Chest is clear to auscultation, no wheezing , no crackles. ABDOMEN: Soft, nontender, nondistended, normoactive bowel sounds. No palpable organomegaly. MUSCULOSKELETAL: No joint swelling or deformity. EXTREMITIES: No cyanosis, clubbing, or pedal edema. -NEUROLOGICAL: Gross neurological examination did not reveal any focal deficits. Examination is limited by the patient noncooperation and confusion SKIN: No rashes. no petechiae. - Labs CBC & Chem 7: 07/08/24 06:24 07/08/24 06:24 Assessment and Plan Assessment: Metabolic encephalopathy with possible stroke. Acute urinary tract infection Subacute/chronic left occipital parietal infarction Hypertension with urgency on presentation Psychosis suspected on admission Plan: Continue with antibiotics ceftriaxone and follow-up urine and blood culture Neurology consult for her stroke. We will start the patient on aspirin 81 mg and Lipitor 20 mg and check lipid panel Will do further workup for altered mental status included ammonia level, TSH, hemoglobin A1c, B12 and folate, plus neurology consult Start metoprolol and monitor blood pressure Psychiatry consult for psychosis hollow handle bench worker consult for placement Labs and medication were reviewed.. Continue same treatment. Continue with symptomatic treatment. Resume home medication. Monitor labs and vitals. DVT and GI prophylaxis. Further recommendations as per clinical course of the patient DVT prophylaxis: Subcutaneous heparin GI Prophylaxis: Pepcid PT/OT: Pending Prognosis is guarded
--- NOTE | 2024-07-10 08:24 | P.PN ---
Subjective Progress Note Date: 07/09/24 Patient was seen for a follow-up. Patient continues to have gibberish speech, sometimes speaks completely sensible, like "I do not pay any attention". She then said "what are you all people going to do". The sitter present by the bedside states that patient cannot carry a thought. She talks gibberish, or sometimes clearly but out of context. While patient was undergoing EEG, the optoelectronic technician was constantly talking to the patient to keep her attentive. She reported that patient was able to answer simple yes and no, when she actually started talking, nothing made sense and it had not to do with what she was actually asking about. Objective - Vital Signs Vital signs: Vital Signs Temp 97.4 F L 07/09/24 09:16 Pulse 99 07/09/24 11:25 Resp 14 07/09/24 11:25 BP 179/91 07/09/24 11:25 Pulse Ox 98 07/09/24 11:25 FiO2 Intake & Output 07/08/24 07/09/24 07/09/24 18:59 06:59 18:59 Intake Total 100 0 175 Balance 100 0 175 Weight 70.5 kg Intake: Oral 100 0 175 Other: Voiding Method Toilet Toilet Toilet # Voids 0 # Bowel Movements 0 - Exam Examination as above. Rest of the examination unchanged. - Labs CBC & Chem 7: 07/08/24 06:24 07/08/24 06:24 Assessment and Plan Assessment: * Altered mental status, with complete fluent aphasia with gibberish speech. Rest of the examination is nonfocal. Rule out CVA versus delirium/psychosis. * Abnormal CT head with evidence of late subacute to chronic infarct involving the left occipital parietal region. * Rule out delirium. * Hypertension Plan: * Patient CT head showed subacute to chronic CVA involving the left occipital parietal region. * Patient cannot have MRI of the brain because of no family members available to give the consent and patient cannot consent because of mental confusion and aphasia. We will repeat CT head. * Start aspirin 325 mg daily. Patient apparently not on any antiplatelet medication at home as per records. * Fasting lipid panel with cholesterol 213, LDL 146, HDL 46 and triglycerides 102. Patient started on Lipitor 20 mg daily. * Hemoglobin A1c 6.0. * B12 1715, TSH 1.040. * Start thiamine 100 mg daily. * Carotid Doppler revealed limited examination. No findings of a hemodynamically significant internal carotid artery stenosis on either side. Antegrade flow in both vertebral arteries. * 2D echo revealed normal LVEF 55 to 60%. Minimally increased posterior wall thickness. Normal right atrial size. Normal left atrial size. No significant valvular abnormalities. * EEG was technically limited study because of patient's constant movement and myogenic artifact during most of the study. Overall, there is presence of rhythmic and arrhythmic frontal delta activity seen, which may suggest underlying focal cortical neuronal dysfunction. No definitive epileptiform activity was seen. If your suspicion for seizures is high, suggest prolonged, sleep deprived EEG. * Patient currently on ceftriaxone 2 g IVPB daily. * Psychiatry has seen the patient, suspecting delirium, started on Seroquel 25 mg at bedtime.
[2024-07-10] MEDS: HEPARIN SODIUM,PORCINE 5,000 UNIT/ML 1 ML VIAL SQ SCH (08:36)
[2024-07-10] MEDS: cloNIDine 0.2 MG/24HR PATCH TRANSDERM SCH (12:16)
--- NOTE | 2024-07-10 23:07 | P.PN ---
Subjective This is a pleasant 74 years old female with limited information regarding her previous history or which medication she takes. She presents from home for altered mental status. She usually per staff she lives alone in her apartment and she has no next of kin, the neighbor called the EMS for her for medical reason unknown but patient barricaded herself in the EMS arrived. No further information is available at this time. Patient herself lying in the emergency room. She looks a pleasant relaxed but she is not talking appropriately, she is confused to time place and person, she mumbles she does not follow commands very well. However she says " everything is wonderful" patient review of system was negative with denying chest pain or dyspnea. GI/ symptom, denying headache dizziness weakness or numbness Patient is afebrile blood pressure stable. Has unremarkable CBC, BMP. Liver enzymes mildly elevated. INR is within the reference range troponin is negative Urine analysis is suspicious for UTI My virus Influenza A and type B, RSV, SARS (coronavirus) are undetected Urine drug screen is negative serum alcohol less than 10 Urine culture and blood culture requested and pending CT of the brain showing no acute process but there is left subacute to chronic infarction of the left occipital parietal region. While chest x-ray showing marked dextroconvex scoliosis and patchy posterior basilar opacity which favor atelectasis. EKG showing sinus rhythm at [address]-T changes 07/08 Patient still confused, She denies burning She refused medication like blood pressure medication, blood pressure still elevated started on clonidine 0.1 mg Evaluated by internet and e business project manager and found she does not have capacity make medical deci aaliyah, I agree with these findings based upon my evaluation Patient was started on Seroquel scheduled and as needed doses per psychiatrist Neurologist also evaluated the patient, EEG, MRI of the brain and echo with bubble study is requested Patient currently remains on ceftriaxone Aspirin 325 mg ordered 07/09 Patient is pleasantly confused She states everything is all right Echocardiogram done today She denies any other new complaint 07/10 Patient remains clinically pleasantly confused. Today she was seen dressed up standing next to the sink trying to wash her teeth stating everything is okay. She was standing by herself with no need for help. Sitter which is at bedside is also available in the room. Yesterday patient refused all her medication. Repeat CT of the brain was ordered. Also MRI of the brain is pending per neurologist recommendation We are going to start clonidine patch 0.2 mg and rectal aspirin if patient is to continue to refuse medication, discussed with staff Objective - Vital Signs Vital signs: Vital Signs Temp 97.4 F L 07/09/24 09:16 Pulse 93 07/10/24 08:00 Resp 16 07/10/24 08:00 BP 173/81 07/10/24 08:00 Pulse Ox 98 07/10/24 08:00 FiO2 Intake & Output 07/09/24 07/10/24 07/10/24 18:59 06:59 18:59 Intake Total 200 1080 Balance 200 1080 Weight 74 kg Intake: Oral 200 1080 Other: Voiding Method Toilet # Voids 1 - Exam -GENERAL: The patient is alert and oriented x0, she does not follow command, she does not answer questions appropriately she mumbles, not in any acute distress. Well developed, well nourished. HEENT: Pupils are round and equally reacting to light. EOMI. No scleral icterus. No conjunctival pallor. Normocephalic, atraumatic. No pharyngeal erythema. No thyromegaly. CARDIOVASCULAR: S1 and S2 present. No murmurs, rubs, or gallops. PULMONARY: Chest is clear to auscultation, no wheezing , no crackles. ABDOMEN: Soft, nontender, nondistended, normoactive bowel sounds. No palpable organomegaly. MUSCULOSKELETAL: No joint swelling or deformity. EXTREMITIES: No cyanosis, clubbing, or pedal edema. -NEUROLOGICAL: Gross neurological examination did not reveal any focal deficits. Examination is limited by the patient noncooperation and confusion SKIN: No rashes. no petechiae. - Labs CBC & Chem 7: 07/08/24 06:24 07/08/24 06:24 Assessment and Plan Assessment: Metabolic encephalopathy with possible stroke. Acute urinary tract infection Subacute/chronic left occipital parietal infarction Hypertension with urgency on presentation Psychosis suspected on admission Plan: Continue with antibiotics ceftriaxone and follow-up urine and blood culture Neurology consult for her stroke. We will start the patient on aspirin 81 mg and Lipitor 20 mg and check lipid panel Will do further workup for altered mental status included ammonia level, TSH, hemoglobin A1c, B12 and folate, plus neurology consult Start metoprolol and monitor blood pressure Psychiatry consult for psychosis piece worker consult for placement Labs and medication were reviewed.. Continue same treatment. Continue with symptomatic treatment. Resume home medication. Monitor labs and vitals. DVT and GI prophylaxis. Further recommendations as per clinical course of the patient DVT prophylaxis: Subcutaneous heparin GI Prophylaxis: Pepcid PT/OT: Pending Prognosis is guarded
--- NOTE | 2024-07-11 10:59 | P.PN ---
Subjective Progress Note Date: 07/10/24 07/10/2024: Patient was seen for follow-up. Sitter was present, and she continues to have aphasia, nonsensical speech. When I asked the patient when her symptoms of speech difficulty started, patient replied "it is a good beautiful day". Patient denies headache, no dizziness, no chest pain. 07/09/2024: Patient was seen for a follow-up. Patient continues to have gibberish speech, sometimes speaks completely sensible, like "I do not pay any attention". She then said "what are you all people going to do". The sitter present by the bedside states that patient cannot carry a thought. She talks gibberish, or sometimes clearly but out of context. While patient was undergoing EEG, the warehouse technician was constantly talking to the patient to keep her attentive. She reported that patient was able to answer simple yes and no, when she actually started talking, nothing made sense and it had not to do with what she was actually asking about. Objective - Vital Signs Vital signs: Vital Signs Temp 98.2 F 07/11/24 07:21 Pulse 88 07/11/24 07:21 Resp 18 07/11/24 07:21 BP 157/82 07/11/24 07:21 Pulse Ox 94 L 07/11/24 07:21 FiO2 Intake & Output 07/10/24 07/11/24 07/11/24 18:59 06:59 18:59 Intake Total 540 Balance 540 Weight 73.5 kg Intake: Oral 540 Other: Voiding Method Toilet # Voids 3 - Exam Examination as above. Rest of the examination unchanged. - Labs CBC & Chem 7: 07/08/24 06:24 07/08/24 06:24 Assessment and Plan Assessment: * Altered mental status, with complete fluent aphasia with gibberish speech. Rest of the examination is nonfocal. Probable due to late subacute CVA versus delirium/psychosis. * Abnormal CT head with evidence of late subacute to chronic infarct involving the left occipital parietal region. * Rule out delirium. * Hypertension Plan: * Patient CT head showed subacute to chronic CVA involving the left occipital parietal region. * Patient cannot have MRI of the brain because of no family members available to give the consent and patient cannot consent because of mental confusion and aphasia. Await repeat CT head * Start aspirin 325 mg daily. Patient apparently not on any antiplatelet medication at home as per records. * Fasting lipid panel with cholesterol 213, LDL 146, HDL 46 and triglycerides 102. Patient started on Lipitor 20 mg daily. * Hemoglobin A1c 6.0. * B12 1715, TSH 1.040. * Start thiamine 100 mg daily. * Carotid Doppler revealed limited examination. No findings of a hemodynamically significant internal carotid artery stenosis on either side. Antegrade flow in both vertebral arteries. * 2D echo revealed normal LVEF 55 to 60%. Minimally increased posterior wall thickness. Normal right atrial size. Normal left atrial size. No significant valvular abnormalities. * EEG was technically limited study because of patient's constant movement and myogenic artifact during most of the study. Overall, there is presence of rhythmic and arrhythmic frontal delta activity seen, which may suggest underlying focal cortical neuronal dysfunction. No definitive epileptiform activity was seen. If your suspicion for seizures is high, suggest prolonged, sleep deprived EEG. * Patient currently on ceftriaxone 2 g IVPB daily. * Psychiatry has seen the patient, suspecting delirium, started on Seroquel 25 mg at bedtime. * We will repeat EEG on Friday. * Dr. Joseph Mckeon to start neurology service from Friday morning.
--- NOTE | 2024-07-11 23:47 | P.PN ---
Subjective This is a pleasant 74 years old female with limited information regarding her previous history or which medication she takes. She presents from home for altered mental status. She usually per staff she lives alone in her apartment and she has no next of kin, the neighbor called the EMS for her for medical reason unknown but patient barricaded herself in the EMS arrived. No further information is available at this time. Patient herself lying in the emergency room. She looks a pleasant relaxed but she is not talking appropriately, she is confused to time place and person, she mumbles she does not follow commands very well. However she says " everything is wonderful" patient review of system was negative with denying chest pain or dyspnea. GI/ symptom, denying headache dizziness weakness or numbness Patient is afebrile blood pressure stable. Has unremarkable CBC, BMP. Liver enzymes mildly elevated. INR is within the reference range troponin is negative Urine analysis is suspicious for UTI My virus Influenza A and type B, RSV, SARS (coronavirus) are undetected Urine drug screen is negative serum alcohol less than 10 Urine culture and blood culture requested and pending CT of the brain showing no acute process but there is left subacute to chronic infarction of the left occipital parietal region. While chest x-ray showing marked dextroconvex scoliosis and patchy posterior basilar opacity which favor atelectasis. EKG showing sinus rhythm at [address]-T changes 07/08 Patient still confused, She denies burning She refused medication like blood pressure medication, blood pressure still elevated started on clonidine 0.1 mg Evaluated by relief salesperson and found she does not have capacity make medical deci aaliyah, I agree with these findings based upon my evaluation Patient was started on Seroquel scheduled and as needed doses per psychiatrist Neurologist also evaluated the patient, EEG, MRI of the brain and echo with bubble study is requested Patient currently remains on ceftriaxone Aspirin 325 mg ordered 07/09 Patient is pleasantly confused She states everything is all right Echocardiogram done today She denies any other new complaint 07/10 Patient remains clinically pleasantly confused. Today she was seen dressed up standing next to the sink trying to wash her teeth stating everything is okay. She was standing by herself with no need for help. Sitter which is at bedside is also available in the room. Yesterday patient refused all her medication. Repeat CT of the brain was ordered. Also MRI of the brain is pending per neurologist recommendation We are going to start clonidine patch 0.2 mg and rectal aspirin if patient is to continue to refuse medication, discussed with staff 07/11 Patient continued to refuse medication, continue to refuse tests like CAT scan or MRI of the brain Patient pleasant and calm She was already evaluated by psychiatrist and found does not have capacity make medical decision Continue sitter at bedside Objective - Vital Signs Vital signs: Vital Signs Temp 98.2 F 07/11/24 07:21 Pulse 88 07/11/24 19:55 Resp 18 07/11/24 19:55 BP 157/82 07/11/24 07:21 Pulse Ox 94 L 07/11/24 07:21 FiO2 Intake & Output 07/11/24 07/11/24 07/12/24 06:59 18:59 06:59 Intake Total 540 Balance 540 Weight 73.5 kg Intake: Oral 540 Other: Voiding Method Toilet Toilet # Voids 3 1 1 - Exam -GENERAL: The patient is alert and oriented x0, she does not follow command, she does not answer questions appropriately she mumbles, not in any acute distress. Well developed, well nourished. HEENT: Pupils are round and equally reacting to light. EOMI. No scleral icterus. No conjunctival pallor. Normocephalic, atraumatic. No pharyngeal erythema. No thyromegaly. CARDIOVASCULAR: S1 and S2 present. No murmurs, rubs, or gallops. PULMONARY: Chest is clear to auscultation, no wheezing , no crackles. ABDOMEN: Soft, nontender, nondistended, normoactive bowel sounds. No palpable organomegaly. MUSCULOSKELETAL: No joint swelling or deformity. EXTREMITIES: No cyanosis, clubbing, or pedal edema. -NEUROLOGICAL: Gross neurological examination did not reveal any focal deficits. Examination is limited by the patient noncooperation and confusion SKIN: No rashes. no petechiae. - Labs CBC & Chem 7: 07/08/24 06:24 07/08/24 06:24 Assessment and Plan Assessment: Metabolic encephalopathy with possible stroke. Acute urinary tract infection Subacute/chronic left occipital parietal infarction Hypertension with urgency on presentation Psychosis suspected on admission Plan: Continue with antibiotics ceftriaxone and follow-up urine and blood culture Neurology consult for her stroke. We will start the patient on aspirin 81 mg and Lipitor 20 mg and check lipid panel Will do further workup for altered mental status included ammonia level, TSH, hemoglobin A1c, B12 and folate, plus neurology consult Start metoprolol and monitor blood pressure Psychiatry consult for psychosis railway track worker consult for placement Labs and medication were reviewed.. Continue same treatment. Continue with symptomatic treatment. Resume home medication. Monitor labs and vitals. DVT and GI prophylaxis. Further recommendations as per clinical course of the patient DVT prophylaxis: Subcutaneous heparin GI Prophylaxis: Pepcid PT/OT: Pending Prognosis is guarded
--- NOTE | 2024-07-13 00:11 | P.PN ---
Subjective Progress Note Date: 07/12/24 This is a pleasant 74 years old female with limited information regarding her previous history or which medication she takes. She presents from home for altered mental status. She usually per staff she l maribel alone in her apartment and she has no next of kin, the neighbor called the EMS for her for medical reason unknown but patient barricaded herself in the EMS arrived. No further information is available at this time. Patient herself lying in the emergency room. She looks a pleasant relaxed but she is not talking appropriately, she is confused to time place and person, she mumbles she does not follow commands very well. However she says " everything is wonderful" patient review of system was negative with denying chest pain or dyspnea. GI/ symptom, denying headache dizziness weakness or numbness Patient is afebrile blood pressure stable. Has unremarkable CBC, BMP. Liver enzymes mildly elevated. INR is within the reference range troponin is negative Urine analysis is suspicious for UTI My virus Influenza A and type B, RSV, SARS (coronavirus) are undetected Urine drug screen is negative serum alcohol less than 10 Urine culture and blood culture requested and pending CT of the brain showing no acute process but there is left subacute to chronic infarction of the left occipital parietal region. While chest x-ray showing marked dextroconvex scoliosis and patchy posterior bas ilar opacity which favor atelectasis. EKG showing sinus rhythm at [address]-T changes 07/08 Patient still confused, She denies burning She refused medication like blood pressure medication, blood pressure still elevated started on clonidine 0.1 mg Evaluated by wood cabinet finisher and found she does not have capacity make medical decision, I agree with these findings based upon my evaluation Patient was started on Seroquel scheduled and as needed doses per psychiatrist Neurologist also evaluated the patient, EEG, MRI of the brain and echo with bubble study is requested Patient currently remains on ceftriaxone Aspirin 325 mg ordered 07/09 Patient is pleasantly confused She states everything is all right Echocardiogram done today She denies any other new complaint 07/10 Patient remains clinically pleasantly confused. Today she was seen dressed up standing next to the sink trying to wash her teeth stating everything is okay. She was standing by herself with no need for help. Sitter which is at bedside is also available in the room. Yesterday patient refused all her medication. Repeat CT of the brain was ordered. Also MRI of the brain is pending per neurologist recommendation We are going to start clonidine patch 0.2 mg and rectal aspirin if patient is to continue to refuse medication, discussed with staff 07/11 Patient continued to refuse medication, continue to refuse tests like CAT scan or MRI of the brain Patient pleasant and calm She was already evaluated by psychiatrist and found does not have capacity make medical decision Continue sitter at bedside 07/12/2024 Patient is seen in follow-up this social work following currently working on obtaining possible guardianship in [facility] where she resides and looking into possible AFC versus ECF. Recommend evaluation by PT/OT therapy for updated therapy notes. Patient is afebrile and denies any chest pain or shortness of breath. Patient is refusing medications and most treatment including vital signs at times. Patient reports is eating and tolerating and denies any difficulty with nausea or vomiting. Patient is medically stable once safe discharge is in process Review of systems: Constitutional: No reports of fatigue, fever, or chills Cardiovascular: No reports of chest pain or palpitations Respiratory: No reports of shortness of breath or cough GI: No reports of nausea, vomiting, or diarrhea : No reports of dysuria or retention Neurovascular: No reports of weakness or numbness All medications have been reviewed Physical exam: GENERAL: The patient is alert and oriented x1-2, sitting up at the bedside, well-developed, appears elderly, remains pleasantly confused HEENT: Pupils are round and equally reacting to light. EOMI. No scleral icterus. No conjunctival pallor. Normocephalic, atraumatic. No pharyngeal erythema. No thyromegaly. CARDIOVASCULAR: S1 and S2 present. No murmurs, rubs, or gallops. PULMONARY: Chest is clear to auscultation, no wheezing , no crackles. ABDOMEN: Soft, nontender, nondistended, normoactive bowel sounds. No palpable organomegaly. MUSCULOSKELETAL: No joint swelling or deformity. EXTREMITIES: No cyanosis, clubbing, or pedal edema. NEUROLOGICAL: Gross neurological examination did not reveal any focal deficits. Diffusely weak SKIN: No rashes. no petechiae. Assessment: Metabolic encephalopathy with acute stroke noted on CT, with aphasia and word salad Acute urinary tract infection, present on admission, was treated with antibiotics now refusing all medications Subacute/chronic left occipital parietal infarction noted on imaging Hypertension with urgency on presentation Psychosis versus delirium suspected on admission Full code Plan: Patient was continued on antibiotics and has completed ceftriaxone Neurology following for her stroke. Patient was started on aspirin 81 mg and Lipitor 20 mg, although patient is refusing all medications Patient was evaluated by psychiatry for psychosis and was given Seroquel as needed. Patient has been refusing and is not receiving aquaculture worker consult for placement. Working on obtaining guardianship in her county and has placed referrals to ECF versus AFC. Recommend updated PT/OT therapy notes Basic labs have been ordered although patient is refusing and has been refusing patient care Patient is medically stable once a safe discharge plan is in process for ECF versus AFC. Patient will require a guardian as patient is unable to make decisions for herself. Overall prognosis is guarded The impression and plan of care has been dictated by Nurse Shiva Gilliland as directed. Dr. Jaren MD I have performed a history and examination and MDM of this patient, discussed the same with the dictator, and agree with the dictator's assessment and plan a s written ,documented as a scribe. Based on total visit time, I have performed more than 50% of the visit. Objective - Vital Signs Vital signs: Vital Signs Temp 98.2 F 07/11/24 07:21 Pulse 88 07/11/24 19:55 Resp 18 07/11/24 19:55 BP 157/82 07/11/24 07:21 Pulse Ox 94 L 07/11/24 07:21 FiO2 Intake & Output 07/11/24 07/12/24 07/12/24 18:59 06:59 18:59 Intake Total 240 Balance 240 Intake: Oral 240 Other: Voiding Method Toilet # Voids 1 2 - Labs CBC & Chem 7: 07/08/24 06:24 07/08/24 06:24
[2024-07-13 14:31] VITALS: BMI 26.1
--- NOTE | 2024-07-13 15:39 | P.DS ---
Providers Date of admission: 07/06/24 16:30 Expected date of discharge: 07/13/24 Attending physician: Ken Dang MD Consults: 07/06/24 16:23 Consult Physician Routine Consulting Provider: Psychiatry - [facility] Psychiatry Consult Reason/Comments: Psychosis Do you want consulting provider notified?: Yes Consult Physician Urgent Consulting Provider: Soni Minor Consult Reason/Comments: Subacute CVA altered mental status Do you want consulting provider notified?: Yes Primary care physician: Stated None Hospital Course: Final diagnosis Metabolic encephalopathy with acute stroke noted on CT, with aphasia and word salad Acute urinary tract infection, present on admission, was treated with antibiotics now refusing all medications Subacute/chronic left occipital parietal infarction noted on imaging Hypertension with urgency on presentation Psychosis versus delirium suspected on admission Full code Discharge disposition Patient is being discharged in a stable condition with guarded prognosis to [facility]. Patient will follow-up with primary care provider in the outpatient setting upon discharge. Patient is to continue with current medications as scheduled. Total time taken is greater than 35 minutes. Hospital course This is a 74year-old female who was recently admitted with increased altered mental status with metabolic encephalopathy with acute stroke noted on CT with word salad's and aphasia. Patient also with concerns of possible urinary tract infection on admission and was treated with antibiotics and will not require further antibiotics on discharge. Patient is refusing medications reporting she is feeling fine and does not need medications. Patient does have significant history of hypertension and has been refusing blood pressure medications. Recommend clonidine patch if patient is compliant with care. Patient is receiving a court date for a guardian on July 21 at 8:30 AM per social work as patient is unable to make decisions for herself. Patient is pleasant although refusing all treatment and care. Patient with underlying dementia would recommend Seroquel although patient is refusing this as well. Patient is medically stable and has been accepted at [facility] and will be going today. Please refer to other consultation notes for further HPI. Currently no reports of chest pain, shortness of breath, or palpitations. Patient is afebrile. No reports of nausea or vomiting and patient is tolerating diet. Patient will be going to [facility] today. Physical exam: Gen: This is a 74-year-old female who is awake, alert and oriented x 1-2 well- developed, elderly appearing, thin built HEENT: Head is atraumatic, normocephalic. Pupils equal, round. Sclerae is anicteric. NECK: Supple. No JVD. No lymphadenopathy. No thyromegaly. LUNGS: Clear to auscultation. No wheezes or rhonchi. No intercostal retractions. HEART: Regular rate and rhythm. No murmur. ABDOMEN: Soft. Bowel sounds are present. No masses. No tenderness. EXTREMITIES: No pedal edema. No calf tenderness. NEUROLOGICAL: Patient is awake, alert and oriented x1-2. Cranial nerves 2 through 12 are grossly intact. Please refer to medication reconciliation sheet for a list of medications. The impression and plan of care has been dictated by Deedee Li, Nurse Practitioner as directed. Dr. Jaren MD I have performed a history and examination and MDM of this patient, discussed the same with the dictator, and agree with the dictator's assessment and plan as written ,documented as a scribe. Based on total visit time, I have performed more than 50% of the visit. Patient Condition at Discharge: Fair Plan - Discharge Summary Discharge Rx Participant: Yes New Discharge Prescriptions: New Atorvastatin [Lipitor] 20 mg PO HS tab amLODIPine [Norvasc] 5 mg PO DAILY tab QUEtiapine [SEROquel] 25 mg PO BID PRN tab PRN Reason: agitation/psychosis Aspirin 325 mg PO DAILY tab cloNIDine 0.2 MG/24HR PATCH [Catapres-TTS] 1 patch TRANSDERM Q7D patch QUEtiapine [SEROquel] 25 mg PO HS tab Acetaminophen Tab [Tylenol] 650 mg PO Q6HR PRN tab PRN Reason: Mild Pain Or Fever > 100.5 Discharge Medication List Acetaminophen Tab [Tylenol] 650 mg PO Q6HR PRN tab 07/13/24 [Rx] Aspirin 325 mg PO DAILY tab 07/13/24 [Rx] Atorvastatin [Lipitor] 20 mg PO HS tab 07/13/24 [Rx] QUEtiapine [SEROquel] 25 mg PO BID PRN tab 07/13/24 [Rx] QUEtiapine [SEROquel] 25 mg PO HS tab 07/13/24 [Rx] amLODIPine [Norvasc] 5 mg PO DAILY tab 07/13/24 [Rx] cloNIDine 0.2 MG/24HR PATCH [Catapres-TTS] 1 patch TRANSDERM Q7D patch 07/13/24 [Rx] Follow up Appointment(s)/Referral(s): None,Stated [Primary Care Provider] - 1-2 days Activity/Diet/Wound Care/Special Instructions: Patient is going to [facility] as tolerated Follow-up with primary care provider Plan is to obtain guardianship on July 21 at 8:30 AM Discharge Disposition: TRANSFER TO SNF/ECF
[2024-07-13 19:51] VITALS: BP 159/108; PULSE 103; RESP 20; TEMP 97.3
== END 2024-07-13 20:49 | DRG 64 ==
LOC: EC 11:55 → 3SCARD 16:30 → 5NMEDONC 07-10 17:55
PROVIDERS: ADMIT Internal Medicine; ATTEND Internal Medicine
DX: I63.9 Cerebral infarction, unspecified (principal); G93.41 Metabolic encephalopathy; F03.90 Unspecified dementia, unspecified severity, without behavioral disturbance, psychotic disturbance, mood disturbance, and anxiety; I16.0 Hypertensive urgency; N39.0 Urinary tract infection, site not specified; R47.01 Aphasia; I10 Essential (primary) hypertension; R41.0 Disorientation, unspecified; Z79.899 Other long term (current) drug therapy
CPT/HCPCS: 36415; 51798; 70450; 71046; 80048; 80053; 80061; 80306; 80320; 81001; 82140; 82607; 82746; 83036; 84443; 84484; 85025; 85610; 85730; 87086; 93005; 93306; 93880; 95816; 96361; 96365; 96375; 96376; 99285